=== PATIENT | female | born 1945 | race Caucasian/White ===

== ENCOUNTER → 2017-11-18 08:31 | Outpatient (REF) | payer SELFPAY ==
[2017-11-18 08:46] LABS: Add Manual Diff / Slide Review NO; Basophils Percent Auto 0.7 % (0-2); Eosinophils Percent Auto 2.2 % (2-4); Hematocrit 30.5 % (36-46); Lymphocytes Percent Auto 28.3 % (25-40); Mean Corpuscular Hemoglobin 29.4 PG (26-34); Mean Corpuscular Volume 89.1 fL (80-100); Monocytes Percent Auto 12.6 % (3-14); Neutrophils Absolute Auto 3000 /uL (3000-5900); Neutrophils Percent Auto 56.2 % (50-75); Platelet Count 409 X10^3/uL (150-400); Red Blood Cell Count 3.42 X10^6/uL (4.0-5.2); Red Cell Distribution Width 19.4 % (11.6-14.8); White Blood Cell Count 5.2 X10^3/uL (4.5-11.0)
[2017-11-18 09:15] LABS: Blood Urea Nitrogen 20 mg/dL (7-17); Calcium 9.3 mg/dL (8.4-10.2); Carbon Dioxide 31 mmol/L (22-32); Chloride 101 mmol/L (98-107); Estimated Glomerular Filt Rate > 60.0 mL/min (>60); Glucose 53 mg/dL (80-110); HEMOLYSIS < 15 (0-50); Potassium 3.8 mmol/L (3.4-5.1); Sodium 142 mmol/L (137-145)
== END ==
LOC: LAB 08:31
PROVIDERS: Family Provider Family Medicine; PCP Family Medicine; Visit Provider Internal Medicine
DX: I63.9 Cerebral infarction, unspecified (principal)
CPT/HCPCS: 36415; 80048; 85025

== ENCOUNTER → 2017-11-19 08:56 | Outpatient (CLI) | payer SELFPAY ==
--- NOTE | 2017-11-19 | DI.RAD.S_ITS ---
PROCEDURE: XR HIP W PEL IF DONE RT 2V INDICATIONS: RIGHT HIP PAIN TECHNIQUE: AP pelvis with lateral view(s) of the right hip(s). COMPARISON: None. FINDINGS: Bones: Status post total right hip arthroplasty with components appearing in normal alignment without evidence of loosening. No fractures or dislocations. Pelvic ring appears intact. No suspicious bony lesions. Mild degenerative joint disease left hip. Soft tissues: The visualized bowel gas pattern is normal. No suspicious soft tissue calcifications. IMPRESSION: 1. No acute osseous abnormality. Status post total right hip arthroplasty. Dictated by: Bret Brito M.D. on 11/19/2017 at 9:56 Approved by: Bret rBito M.D. on 11/19/2017 at 9:58
== END ==
PROVIDERS: Family Provider Family Medicine; PCP Family Medicine; Visit Provider Internal Medicine
DX: M25.551 Pain in right hip (principal); Z96.641 Presence of right artificial hip joint
CPT/HCPCS: 73502

== ENCOUNTER → 2022-05-01 10:38 | Outpatient (CLI) | payer MEDICARE, OTHER, SELFPAY ==
[2022-05-01 11:48] LABS: COVID19 -Nasal RAPID Negative (Negative)
--- NOTE | 2022-05-01 19:35 | DI.NM.S_ITS ---
DATE OF SERVICE: 05/01/2022 PROCEDURE PERFORMED: Pharmacologic vasodilator stress and rest myocardial perfusion imaging with gating to assess ejection fraction and regional wallmotion. ORDERING PROVIDER: Dr. Nora Crow. INDICATIONS: The patient is a 76-year-old female with chronic atrial fibrillation, diastolic heart failure, and moderate aortic valve stenosis with significant dyspnea. CARDIAC STRESS: Per protocol, 0.4 mg of regadenoson was infused with a normal hemodynamic response. She had minimal dyspnea, but developed 4/10 chest tightness in the mid chest that was nonradiating that resolved promptly in recovery. Her resting ECG shows atrial fibrillation with significant ST and T-wave abnormalities in the inferolateral leads, suggesting a probable strain pattern. There were no significant ST-segment shifts with stress. There were no additional arrhythmias beyond her persistent atrial fibrillation. Per protocol, 25.4 millicuries of technetium-99m Myoview was injected and she was imaged 20 minutes later using a gated SPECT acquisition protocol. Earlier in the day while at rest, she had been injected with 11.4 millicuries of technetium-99m Myoview and was imaged 20 minutes later, again using a gated SPECT acquisition protocol. FINDINGS: 1. Raw data: There is fair myocardial tracer uptake although she was imaged with her right arm down because of mobility issues and she was unable to lie prone. There is a large amount of bowel activity with some tracer activity adjacent to the inferolateral wall affecting the interpretation. Her lung/heart ratio was normal at 0.35. While her TID ratio was mildly elevated at 1.36, this is not visually evident and likely due to the small left ventricular volumes and is non-specific. 2. Quantitated gated SPECT: Post-stress ejection fraction is estimated at 69% without any focal wall motion abnormality and small left ventricular volumes. The right ventricle appears enlarged with increased tracer uptake, suggesting a probable right ventricular overload state, possibly reflecting pulmonary hypertension. The resting ejection fraction is estimated at 76% with a small resting end-diastolic volume of 38 mL. 3. Myocardial perfusion imaging: Post-stress supine images shows a fairly normal myocardial perfusion pattern without any obvious perfusion defects. Again, there is increased tracer uptake in the right ventricle, suggesting a right ventricular overload condition. The resting images show a similar perfusion pattern without any areas of improvement. IMPRESSION: 1. Normal myocardial perfusion study for ischemia. 2. No compelling evidence for significant myocardial ischemia or previous myocardial infarction. 3. Normal left ventricular systolic function with small left ventricular volumes. There is increased right ventricular tracer uptake with evidence of right ventricular enlargement, suggesting a right ventricular overload condition, such as pulmonary hypertension, but clinical correlation is recommended. 4. Development of chest discomfort with regadenoson infusion that promptly abated with no change in her resting inferolateral ST-segment abnormalities to suggest ischemia. She remained in atrial fibrillation throughout. Tiffani Saldaña - SANTIAGO/rafat/adore doc#: [id number]/job#: [id number] dd: 05/01/2022 17:48:00 dt: 05/01/2022 19:05:00 DICTATING /COPIES TO: Cyrus Bello MD COPIES MNE: BEENA;
== END ==
PROVIDERS: Family Provider Family Medicine; PCP Family Medicine; Referring Provider Internal Medicine Cardiovascular Disease; Visit Provider Internal Medicine Cardiovascular Disease
DX: I35.0 Nonrheumatic aortic (valve) stenosis (principal); I48.20 Chronic atrial fibrillation, unspecified; I50.30 Unspecified diastolic (congestive) heart failure; R06.09 Other forms of dyspnea; Z20.822 Contact with and (suspected) exposure to COVID-19
CPT/HCPCS: 78452; 87635; 93017; A9502; J2785

== ENCOUNTER → 2022-06-12 13:42 | Outpatient (CLI) | payer MEDICARE, OTHER, SELFPAY ==
--- NOTE | 2022-06-12 | DI.ECHO.S_ITS ---
[facility]---------+ [facility] +---------+ : : [address] : : : : [place] : : : : [id number] : : : : Phone: [phone]+ Echocardiogram Report + + :Name: BETO RICHARD Study Date: 06/12/2022 Height: 61 in : :[facility] ReadingLocation: Weight: 139 lb : : Gender: Female BSA: 1.6 m2 : :: 1945 Age: 76 yrs BP: 116/68 mmHg: :Reason For Study: AORTIC STENOSIS : :Ordering Physician: DARION, : :NORA Allan Performed By: Keesha Ray : :Referring: NORA CROW : + + Interpretation Summary There is mild-moderate concentric left ventricular hypertrophy. D-shaped interventricular septum. Diastolic function could not be accurately assessed due to atrial fibrillation. The right ventricle is moderately dilated. Right ventricular systolic function is mildly reduced. Severe biatrial enlargement. There is moderate aortic stenosis. There is trace aortic regurgitation. There is moderate tricuspid regurgitation. The right ventricular systolic pressure is estimated to be at least 73 mmHg based on an estimated right atrial pressure of 8 mm Hg. Compared to the prior study dated 04/09/2020, there is a slight increase in tricuspid regurgitation but a significant increase in pulmonary pressure. The mobile echogenic structure in the LVOT is unchanged. Procedure: A two-dimensional transthoracic echocardiogram with color flow and Doppler was performed. The study quality was technically adequate. There is no prior echocardiogram noted for this patient. The patient was in atrial fibrillation with heart rates between 77-98 bpm during the exam. Left Ventricle: The left ventricular cavity is small. There is mild-moderate concentric left ventricular hypertrophy. D-shaped interventricular septum. There is a small mobile echogenic structure noted in the LVOT measuring approximately 7.0 mm x 3.0 mm, possible old healed vegetation. The ejection fraction is estimated to be 60-65%. Diastolic function could not be accurately assessed due to atrial fibrillation. Right Ventricle: The right ventricle is moderately dilated. Right ventricular systolic function is mildly reduced. Atria: The left atrium is severely dilated. The right atrium is severely dilated. There is no Doppler evidence for an interatrial shunt. Mitral Valve: The mitral valve leaflets appear mildly thickened, but open well. There is severe mitral annular calcification. There is trace mitral regurgitation. Aortic Valve: The aortic valve is trileaflet. The aortic valve is moderately calcified. There is moderately reduced leaflet mobility. The peak aortic velocity is 2.3 m/sec. The aortic valve mean gradient is 12 mmHg. The dimensionless index is 0.31. There is moderate aortic stenosis. There is trace aortic regurgitation. Tricuspid Valve: The tricuspid valve leaflets are thickened and/or calcified, but open well. There is moderate tricuspid regurgitation. The right ventricular systolic pressure is estimated to be at least 73 mmHg based on an estimated right atrial pressure of 8 mm Hg. Pulmonic Valve: The pulmonic valve leaflets are thin and pliable; valve motion is normal. There is trace pulmonic regurgitation. Great Vessels: The aortic root is normal size. The dimensions of the ascending aorta are normal. The IVC is dilated (diameter is greater than 2.1 cm) yet it collapses greater than 50% with a sniff. This suggests a right atrial pressure of 8 mm Hg. Pericardium/ Pleura There is no pericardial effusion. There is no pleural effusion. MMode/2D Measurements & Calculations LVIDd: 2.8 cm LVOT diam: 2.1 cm LVIDs: 2.0 cm Ao root diam: 3.1 cm FS: 29.0 % asc Aorta Diam: 3.3 cm EPSS: 1.5 cm Ao Arch Diam (Prox Trans): 2.9 cm IVSd: 1.1 cm LVPWd: 1.0 cm LV burns. diameter/BSA (cm/m^2): 1.7 LV sys. diameter/BSA (cm/m^2): 1.2 LA A2 area: 36.1 cm2 RA long axis: 6.5 cm LA A4 area: 27.6 cm2 RA area: 25.6 cm2 LA length (vol): 6.9 cm RA vol: 85.6 ml LA vol: 122.2 ml RA : 52.9 ml/m2 LA vol index: 75.5 ml/m2 IVC diam: 2.3 cm RVD1 (basal): 4.5 cm RVD2 (mid): 4.4 cm TAPSE: 1.5 cm Doppler Measurements & Calculations Ao V2 max: 225.6 cm/sec LVOT Max Edmundo: 71.3 cm/sec Ao V2 mean: 147.9 cm/sec LV V1 max P.0 mmHg Ao max P.1 mmHg LV V1 VTI: 13.8 cm Ao mean P.7 mmHg CONCEPCION(I,D): 1.0 cm2 Ao V2 VTI: 45.1 cm CONCEPCION(V,D): 1.1 cm2 sev ratio: 0.31 CONCEPCION indexed to BSA (cm^2/m^2): 0.64 MV E max edmundo: 129.2 cm/sec TR max edmundo: 403.7 cm/sec MV A max edmundo: 2.2 cm/sec TR max P.2 mmHg MV E/A: 59.4 PA V2 max: 75.1 cm/sec Med Peak E' Edmundo: 4.0 cm/sec PA V2 mean: 50.6 cm/sec E/E' med: 32.7 PA mean P.1 mmHg Lat Peak E' Edmundo: 6.2 cm/sec PA pr(Accel): 49.9 mmHg E/E' lat: 20.8 E/e' average: 26.8 MV dec time: 0.17 sec MVA(VTI): 2.2 cm2 MV V2 mean: 68.0 cm/sec SV(LVOT): 46.4 ml MV mean P.4 mmHg MV V2 VTI: 21.5 cm Reading Physician:04:42 PM
== END ==
PROVIDERS: Family Provider Family Medicine; PCP Nurse Practitioner Family; Referring Provider Internal Medicine Cardiovascular Disease; Visit Provider Internal Medicine Cardiovascular Disease
DX: I08.3 Combined rheumatic disorders of mitral, aortic and tricuspid valves (principal); R06.09 Other forms of dyspnea
CPT/HCPCS: 93306

== ENCOUNTER 2024-02-23 11:40 | Emergency (ER) | payer MEDICARE, OTHER, SELFPAY ==
[2024-02-23 11:48] VITALS: BP 134/61; PULSE 78; RESP 16; TEMP 36.9; O2SAT 98; BMI 26.5
--- NOTE | 2024-02-23 12:31 | DI.US.S_ITS ---
PROCEDURE: US PERIPH VENOUS LOW EXTREM BI INDICATIONS: SWELLING AND PURPLE COLORATION TECHNIQUE: Real-time imaging, as well as color and pulse Doppler interrogation, were performed of the deep veins of both legs from the inguinal ligament to the popliteal fossa, with documentation of the visualized calf veins. COMPARISON: None. FINDINGS: Right: The common femoral, femoral, popliteal, and the visualized calf veins are normally compressible, and free of intraluminal thrombus. Color and pulse Doppler demonstrate normal phasic intravascular flow. There is normal augmentation response to distal compression maneuver. Left: The common femoral, femoral, popliteal, and the visualized calf veins are normally compressible, and free of intraluminal thrombus. Color and pulse Doppler demonstrate normal phasic intravascular flow. There is normal augmentation response to distal compression maneuver. Bilateral ankle soft tissue edema is seen. IMPRESSION: No evidence of DVT in visualized bilateral lower extremity veins. Dictated by: Elmo Oseguera M.D. on 02/23/2024 at 13:32 Approved by: Elmo Oseguera M.D. on 02/23/2024 at 13:33
--- NOTE | 2024-02-23 12:32 | ED_ITS ---
HPI - Extremity Problem <Layo Mahmood PA-C - Last Filed: 02/23/24 13:50> General Chief complaint: Extremity Problem,Nontraumatic Stated complaint: Diabetic Feet are turning purple Time Seen by Provider: 02/23/24 12:11 Source: patient Mode of arrival: Ambulatory History of Present Illness HPI Narrative: 80-year-old female with past medical history hypertension, hyperlipidemia, type 2 diabetes, GERD, CHF, atrial fibrillation, pulmonary hypertension sent to the ED by her primary care physician due to concern for purple coloration of bilateral extremities, possible DVTs. Patient states that she went to her PCP yesterday for a routine checkup for her diabetes, when they did a foot check and noted that her bilateral feet seemed purple. Patient states that she has not seen this happened before. Patient denies any discomfort in her feet or lower legs. No numbness, tingling, weakness. Patient states that this is improved since yesterday and that the discoloration is only slightly visible today. Patient states that she does tend to have leg swelling if she does not take her torsemide daily on time. Patient also states that she avoids taking [place]sem[place] qaccidents. Patient states that she has not taken the torsemide for the last 2-3 days as a result. Patient does endorse that her swelling is more than usual due to that. Patient also wears compression stockings normally, was not able to do so today since she was in a hurry to catch the [employer]. Patient denies any other symptoms such as fever, chills, chest pain, shortness of breath, nausea, vomiting, dizziness, lightheadedness, syncope. Related Data Home Medications Medication Instructions Recorded Confirmed ACETAMINOPHEN (TYLENOL EXTRA 500 mg PO Q DAY PRN ##0 11/13/10 STRENGTH) ASPIRIN (Aspirin EC) 81 mg PO Q DAY ##0 01/24/11 cholecalciferol (vitamin D3) 50 2,000 iu PO Q DAY ##0 01/24/11 mcg (2,000 unit) capsule (Vitamin D3) [probiotic] QDAY ##0 04/14/16 Previous Rx's Medication Instructions Recorded lisinopril 20 1 tab PO QDAY #90 tabs 12/27/15 mg-hydrochlorothiazide 12.5 mg tablet rosuvastatin 40 mg tablet (Crestor) 40 mg PO Q DAY #90 tabs 04/14/16 ciclopirox 8 % topical solution 0 topical QDAY #1 mL 04/18/16 albuterol sulfate 90 mcg/actuation 0 puff INH PRN PRN #1 puff 12/09/16 aerosol inhaler (Ventolin HFA) ezetimibe 10 mg tablet (Zetia) 10 mg PO QDAY #90 tabs 01/15/17 pioglitazone 30 mg tablet (Actos) 30 mg PO QDAY #90 tabs 01/15/17 Allergies Allergy/AdvReac Type Severity Reaction Status Date / Time hydrocodone [HYDROCODONE] Allergy Mild VOMITING Verified 02/23/24 11:48 metformin [METFORMIN] Allergy Mild GI UPSET Verified 02/23/24 11:48 niacin [NIACIN] AdvReac Mild FLUSH, Verified 02/23/24 11:48 REDDENING Review of Systems <Layo Mahmood PA-C - Last Filed: 02/23/24 13:50> Constitutional Constitutional: Denies chills, Denies fatigue, Denies fever(s), Denies frequent falls, Denies lethargy and Denies weakness Eyes Eyes: Denies change in vision, Denies eye discharge, Denies irritation and Denies loss of vision ENT Ears, Nose, Mouth, and Throat: Denies change in voice, Denies dizziness, Denies neck pain, Denies sore throat and Denies throat swelling Cardiovascular Cardiovascular: Denies chest pain, Denies irregular heart rhythm, Denies lightheadedness, Denies palpitations, Denies dyspnea, Denies dyspnea on exertion and Denies orthopnea Respiratory Respiratory: Denies cough, Denies dyspnea, Denies dyspnea on exertion and Denies wheezing Gastrointestinal Gastrointestinal: Denies abdominal pain, Denies change in bowel habits, Denies diarrhea, Denies nausea and Denies vomiting Musculoskeletal Musculoskeletal: Denies neck pain and Denies numbness Integumentary/Breasts Skin/Breast: Denies pruritus, Denies erythema, Denies rash and Denies wounds Comments: Bilateral feet have purple coloration. Neurologic Neurologic: Denies behavioral changes, Denies confusion, Denies dizziness, Denies frequent falls, Denies loss of vision, Denies numbness and Denies weakness Psychiatric Psychiatric: Denies anxiety, Denies behavioral changes, Denies confusion, Denies depression, Denies homicidal ideation and Denies suicidal ideation Endocrine Endocrine: Denies fatigue, Denies flushing and Denies palpitations Hematologic/Lymphatic Hematologic/Lymphatic: Denies easy bruising Allergic/Immunologic Allergic/Immunologic: Denies urticaria, Denies throat swelling and Denies wheezing Patient History <Layo Mahmood PA-C - Last Filed: 02/23/24 13:50> Social History Smoking Status: Never smoker Smoking Status: Never smoker Substance Use Type: does not use Exam <Layo Mahmood PA-C - Last Filed: 02/23/24 13:50> Narrative Exam Narrative: Const General:?cooperative, healthy appearing and comfortable HENMT Head:?normal to inspection Ears:?hearing grossly normal bilaterally Nose:?external nose normal Face and sinus:?normal facial exam and sinuses nontender Mouth:?oral mucosae normal Throat:?posterior oropharynx normal Eyes General:?appearance normal, both eyes and all related structures Neck Neck:?normal visual inspection and no lymphadenopathy noted Resp Effort & Inspection:?normal respiratory effort Auscultation:?clear to auscultation bilaterally Cardio Rate:?regular rate Rhythm:?regular rhythm Musculoskeletal/integumentary There is mild bilateral lower leg swelling, with some darker discoloration of the skin from just above the ankle to the foot. Pulses are intact bilaterally. Skin is warm to touch and appears well perfused. Cap refill less than 2 seconds. Skin is intact with no wounds. Patient is able to bear weight and walk. Neuro General:?patient alert, patient awake and patient oriented x3 Initial Vital Signs Initial Vital Signs: Vital Signs Temperature 98.5 F 02/23/24 11:48 Pulse Rate 78 02/23/24 11:48 Respiratory Rate 16 02/23/24 11:48 Blood Pressure 134/61 02/23/24 11:48 Pulse Oximetry 98 02/23/24 11:48 Oxygen Delivery Method Room Air 02/23/24 11:48 <Katie Yeager MD - Last Filed: 02/23/24 14:44> Initial Vital Signs Initial Vital Signs: Vital Signs Temperature 98.5 F 02/23/24 11:48 Pulse Rate 78 02/23/24 11:48 Respiratory Rate 16 02/23/24 11:48 Blood Pressure 134/61 02/23/24 11:48 Pulse Oximetry 98 02/23/24 11:48 Oxygen Delivery Method Room Air 02/23/24 11:48 Course <Layo Mahmood PA-C - Last Filed: 02/23/24 13:50> Orders Ordered: ED Orders 02/23/24 12:31 periph venous low extrem bi Stat Vital Signs Vital signs: Vital Signs - 8 hr 02/23/24 11:48 02/23/24 13:52 Temperature 98.5 F Pulse Rate 78 83 Respiratory Rate 16 18 Blood Pressure 134/61 131/71 Pulse Oximetry 98 99 Oxygen Delivery Method Room Air Room Air <Katie Yeager MD - Last Filed: 02/23/24 14:44> Orders Ordered: ED Orders 02/23/24 12:31 perip venous low extrem bi Stat Vital Signs Vital signs: Vital Signs - 8 hr 02/23/24 11:48 02/23/24 13:52 Temperature 98.5 F Pulse Rate 78 83 Respiratory Rate 16 18 Blood Pressure 134/61 131/71 Pulse Oximetry 98 99 Oxygen Delivery Method Room Air Room Air MDM - Extremity (Nontraumatic) <Layo Mahmood PA-C - Last Filed: 02/23/24 13:50> MDM Narrative Medical decision making narrative: 80-year-old female with past medical history hypertension, hyperlipidemia, type 2 diabetes, GERD, CHF, atrial fibrillation, pulmonary hypertension sent to the ED by her primary care physician due to concern for purple coloration of bilateral extremities, possible DVTs. Patient's presentation is most consistent with bilateral leg swelling secondary to CHF, accompanied by some mild venous stasis. It is possible she has some peripheral arterial disease disease, however it is reassuring that she has intact bilateral pedal pulses, cap refill is less than 2 seconds and bilateral extremities are well perfused. It is also reassuring that she does not have any claudication, numbness, tingling, weakness. Will rule out DVTs with ultrasound. Ultrasound with no evidence of DVT in bilateral lower extremities. Patient is neurovascularly intact. Counseled patient on continued use of compression stockings, torsemide, leg elevation. Recommend follow-up with PCP as soon as possible. Return to the ED if worsening symptoms. Patient verbalized understanding. Medical records reviewed: Yes Discharge Plan Departure Patient Disposition: Home Clinical Impression: Discoloration of skin of lower leg Instructions: Chronic Venous Insufficiency Activity Restrictions/Additional Instructions: You were evaluated in the ED today for discoloration of your lower legs. The ultrasounds were normal with no evidence of blood clots. Please follow-up with your PCP as soon as possible. Please continue to take your torsemide and apply the compression stockings daily to avoid lower leg swelling. Return to the ED if you have worsening symptoms, chest pain, shortness of breath, numbness, tingling, weakness. Prescriptions: No Action ACETAMINOPHEN (TYLENOL EXTRA STRENGTH) 500 mg PO Q DAY PRN Qty: 0 ASPIRIN (Aspirin EC) 81 mg PO Q DAY Qty: 0 cholecalciferol (vitamin D3) [Vitamin D3] 2,000 UNIT capsule 2,000 iu PO Q DAY Qty: 0 lisinopril-hydrochlorothiazide 20 MG/12.5 MG tablet 1 tab PO QDAY Qty: 90 1RF [probiotic] QDAY Qty: 0 rosuvastatin [Crestor] 40 MG tablet 40 mg PO Q DAY Qty: 90 1RF ciclopirox 6.6 ML solution 0 Topical QDAY Qty: 1 0RF albuterol sulfate [Ventolin HFA] 90 MCG/PUFF HFA aerosol inhaler 0 puff INH PRN PRNQty: 1 0RF ezetimibe [Zetia] 10 MG tablet 10 mg PO QDAY Qty: 90 0RF pioglitazone [Actos] 30 MG tablet 30 mg PO QDAY Qty: 90 0RF Referrals: Jyotsna Kaur ARNP [Primary Care Provider] - Stand Alone Forms: Patient Portal/API ED Sign-out <Katie Yeager MD - Last Filed: 02/23/24 14:44> Cosign ED Attending Cathi Attestation: I was immediately available in the department for consultation throughout this patient's visit. Katie Yeager MD
[2024-02-23 13:52] VITALS: BP 131/71; PULSE 83; RESP 18; O2SAT 99
== END 2024-02-23 13:54 | disposition home or self-care (01) ==
PROVIDERS: Emergency Provider Student in an Organized Health Care Education/Training Program; Family Provider Family Medicine; PCP Nurse Practitioner Family
DX: L81.9 Disorder of pigmentation, unspecified (principal); R60.0 Localized edema; I10 Essential (primary) hypertension; E78.2 Mixed hyperlipidemia; E11.9 Type 2 diabetes mellitus without complications
CPT/HCPCS: 93970; 99281; 99283

== ENCOUNTER → 2024-09-19 13:12 | Outpatient (ROUT) | payer MEDICARE, OTHER, SELFPAY | PROVIDERS: Family Provider Family Medicine; PCP Nurse Practitioner Family; Visit Provider Registered Nurse | DX: L03.116 Cellulitis of left lower limb (principal) | CPT/HCPCS: 87070; 87075 ==

== ENCOUNTER → 2025-05-29 13:49 | Outpatient (CLI) | payer MEDICARE, SELFPAY ==
[2025-05-29 14:36] LABS: Add Manual Diff / Slide Review NO; Hematocrit 42.4 % (36-46); Hemoglobin 14.1 g/dL (12.0-16.0); Lymphocytes Absolute Auto 2100 /uL (1100-4500); Mean Corpuscular HGB Conc 33.2 % (30-36); Mean Corpuscular Hemoglobin 31.7 PG (26-34); Mean Corpuscular Volume 95.4 fL (80-100); Platelet Count 177 X10^3/uL (150-400)
[2025-05-29 14:54] LABS: Hemoglobin A1C% w Est Avg Glu 7.0 % (4.0-6.0)
[2025-05-29 15:02] LABS: Alanine Aminotransferase 17 IU/L (<35); Albumin 4.7 g/dL (3.5-5.0); Albumin Globulin Ratio 1.6 (1.0-2.8); Alkaline Phosphatase 122 U/L (38-126); Blood Urea Nitrogen 29 mg/dL (7-17); Calcium 9.6 mg/dL (8.4-10.2); Carbon Dioxide 25 mmol/L (22-32); Chloride 96 mmol/L (98-107); Cholesterol 181 mg/dL (140-199); Estimated Glomerular Filt Rate 49 mL/min (>60); Globulin 2.9 g/dL (1.7-4.1); Glucose 207 mg/dL (70-99); HDL Cholesterol 82 mg/dL (40-60); HEMOLYSIS 28 (0-50); Potassium 4.4 mmol/L (3.4-5.1); Sodium 134 mmol/L (137-145); Total Protein 7.6 g/dL (6.3-8.2); Triglycerides 125 mg/dL (35-150)
== END ==
PROVIDERS: Family Provider Family Medicine; PCP Family Medicine; Referring Provider Family Medicine; Visit Provider Family Medicine
DX: E11.9 Type 2 diabetes mellitus without complications (principal); I10 Essential (primary) hypertension; E78.2 Mixed hyperlipidemia; E78.5 Hyperlipidemia, unspecified
CPT/HCPCS: 36415; 80053; 80061; 83036; 85025